=== PATIENT | male | born 1960 | race Caucasian/White ===

== ENCOUNTER 2023-11-23 13:28 | Inpatient (IN) | payer OTHER, MEDICAID ==
[~2023-11-23] VITALS: Ht 167.6 cm; Wt 83.9 kg
[2023-11-23 13:28] VITALS: BP 145/70; PULSE 67; RESP 18; TEMP 98.2; O2SAT 97
[2023-11-23] MEDS ORDERED: LORazepam 2 MG/ML VIAL IVP ONE (13:50)
[2023-11-23 14:02] LABS: BASOPHILS % (AUTO) 0.6 % (0.0-2.0); EOSINOPHILS # (AUTO) 0.2 K/uL (0-0.4); EOSINOPHILS % (AUTO) 3.6 % (0.0-4.0); HEMATOCRIT 36.1 % (36-52); LYMPHOCYTES # (AUTO) 1.4 K/uL (2.0-11.5); LYMPHOCYTES % (AUTO) 31.2 % (20.5-51.1); MEAN CORPUSCULAR HEMOGLOBIN 32 pg (27-31); MEAN CORPUSCULAR HGB CONC 33 g/dL (33-37); MEAN CORPUSCULAR VOLUME 95.4 fL (80-94); MONOCYTES # (AUTO) 0.4 K/uL (0.8-1.0); MONOCYTES % (AUTO) 8.8 % (1.7-9.3); NEUTROPHILS # (AUTO) 2.5 K/uL (1.8-7.7); NEUTROPHILS % (AUTO) 55.8 % (42.2-75.2); PLATELET COUNT (AUTO) 211 K/uL (140-450); RED BLOOD CELL COUNT(AUTO) 3.78 MIL/uL (4.20-6.10); RED CELL DISTRIBUTION WIDTH 15.1 % (11.6-13.7); WHITE BLOOD COUNT (AUTO) 4.5 K/uL (4.8-10.8)
[2023-11-23 14:20] LABS: ALANINE AMINOTRANSFERASE 22 U/L (12-78); ALBUMIN 3.4 g/dL (3.4-5.0); ALCOHOL, BLOOD < 3 mg/dL (<10); ALKALINE PHOSPHATASE 94 U/L (50-136); ANION GAP 12.1 (8-16); ASPARTATE AMINOTRANSFERASE 18 U/L (15-37); CARBON DIOXIDE 24.6 mmol/L (21-32); CHLORIDE 105 mmol/L (98-107); CREATININE 1.2 mg/dL (0.6-1.3); GFR ARICAN-AMERICAN 79 mL/min (>90); GFR NON ARICAN-AMERICAN 65 mL/min (>90); GLUCOSE 173 mg/dL (74-106); POTASSIUM 3.7 mmol/L (3.5-5.1); SODIUM SERUM 138 mmol/L (136-145); TOTAL BILIRUBIN 0.2 mg/dL (0.0-1.0); TOTAL PROTEIN, SERUM 6.7 g/dL (6.4-8.2); UREA NITROGEN, BLOOD 22 mg/dL (7-18)
[2023-11-23 15:58] LABS: APPEARANCE,URINE CLEAR (CLEAR); BILIRUBIN,URINE NEGATIVE (NEGATIVE); BLOOD, URINE NEGATIVE (NEGATIVE); COLOR,URINE YELLOW (YELLOW); LEUKOCYTE ESTERASE ,URINE NEGATIVE (NEGATIVE); NITRITE, URINE NEGATIVE (NEGATIVE); PROTEIN,URINE NEGATIVE (NEGATIVE); UGLUCOSE NEGATIVE (NEGATIVE); UROBILINOGEN,URINE 0.2 EU/dL (0.2 - 1)
[2023-11-23] MEDS: AMMONIA AROMATIC 1 INHL INH ONE (16:00)
[2023-11-23 16:06] LABS: AMPHETAMINE, URINE NEGATIVE ng/ml (NEG <=1000); BARBITURATE, URINE NEGATIVE ng/ml (NEG <=200); BENZODIAZEPINE, URINE NEGATIVE ng/mL (NEG <=200); COCAINE, URINE NEGATIVE ng/mL (NEG <=300)
[2023-11-23 16:07] LABS: CANNABINOID, URINE NEGATIVE ng/mL (NEG <=50); OPIATE, URINE NEGATIVE ng/mL (NEG <=2000); PHENCYCLIDINE SCREEN,URINE NEGATIVE ng/mL (NEG <=25)
[2023-11-23] MEDS ORDERED: levETIRAcetam 100 MG/ML VIAL IV ONE (17:12)
[2023-11-23] MEDS: levETIRAcetam 1,000 MG in NACL 0.9% 100 ML IV ONE (17:16)
[2023-11-23 17:33] VITALS: O2SAT 97
[2023-11-23 19:30] LABS: FLU A ANTIGEN negative (NEGATIVE); FLU B ANTIGEN NEGATIVE (NEGATIVE)
[2023-11-23 20:00] VITALS: PULSE 69; PULSE 75; RESP 18; O2SAT 99
[2023-11-23] MEDS: carvediloL 3.125 MG TAB PO ONE (20:37)
[2023-11-23] MEDS: ZOLPIDEM 5 MG TAB PO SCH (20:37)
[2023-11-23] MEDS: LOSARTAN 25 MG TAB PO ONE (20:38)
[2023-11-23] MEDS: NITROGLYCERIN 0.4 MG TAB SL ONE (20:46)
[2023-11-23] MEDS: LORazepam 2 MG/ML VIAL IM/IVP PRN (21:43)
[2023-11-23] MEDS: levETIRAcetam 500 MG TAB PO SCH (21:43)
[2023-11-24] VITALS: PULSE 55
[2023-11-24 04:00] VITALS: BP 109/49; PULSE 52; PULSE 54; RESP 21; TEMP 97.8; O2SAT 97
[2023-11-24 06:06] LABS: BASOPHILS % (AUTO) 0.6 % (0.0-2.0); EOSINOPHILS # (AUTO) 0.2 K/uL (0-0.4); EOSINOPHILS % (AUTO) 4.5 % (0.0-4.0); HEMATOCRIT 36.7 % (36-52); HEMOGLOBIN 12.3 g/dL (12.0-18.0); LYMPHOCYTES # (AUTO) 1.8 K/uL (2.0-11.5); LYMPHOCYTES % (AUTO) 36.9 % (20.5-51.1); MEAN CORPUSCULAR HEMOGLOBIN 32 pg (27-31); MEAN CORPUSCULAR HGB CONC 34 g/dL (33-37); MEAN CORPUSCULAR VOLUME 95.3 fL (80-94); MONOCYTES # (AUTO) 0.5 K/uL (0.8-1.0); MONOCYTES % (AUTO) 10.5 % (1.7-9.3); NEUTROPHILS # (AUTO) 2.3 K/uL (1.8-7.7); NEUTROPHILS % (AUTO) 47.5 % (42.2-75.2); PLATELET COUNT (AUTO) 227 K/uL (140-450); RED BLOOD CELL COUNT(AUTO) 3.85 MIL/uL (4.20-6.10); RED CELL DISTRIBUTION WIDTH 15.5 % (11.6-13.7); WHITE BLOOD COUNT (AUTO) 4.8 K/uL (4.8-10.8)
[2023-11-24 06:48] LABS: ALBUMIN 3.3 g/dL (3.4-5.0); ANION GAP 11.4 (8-16); CALCIUM 8.9 mg/dL (8.5-10.1); CARBON DIOXIDE 24.6 mmol/L (21-32); TOTAL BILIRUBIN 0.3 mg/dL (0.0-1.0); TOTAL PROTEIN, SERUM 7.1 g/dL (6.4-8.2)
[2023-11-24 06:59] LABS: CREATININE 1.1 mg/dL (0.6-1.3)
[2023-11-24 08:00] VITALS: BP 130/76; PULSE 50; RESP 18; TEMP 97.8; O2SAT 93
[2023-11-24] MEDS: PANTOPRAZOLE 40 MG INJ VIAL IVP SCH (09:24)
[2023-11-24] MEDS: levETIRAcetam 500 MG TAB PO SCH (09:24)
[2023-11-24 12:00] VITALS: BP 133/84; PULSE 64; RESP 18; TEMP 97.4; O2SAT 95
[2023-11-24 16:00] VITALS: BP 136/71; PULSE 56; RESP 18; TEMP 98; O2SAT 96
[2023-11-24 20:00] VITALS: BP 143/78; PULSE 66; PULSE 79; RESP 18; TEMP 97.2; O2SAT 94
[2023-11-25] VITALS: BP 136/74; PULSE 56; PULSE 57; RESP 18; TEMP 97.9; O2SAT 94
[2023-11-25] MEDS: MORPHINE SULFATE 2 MG/ML SYR IVP PRN (02:09)
[2023-11-25 04:00] VITALS: BP 118/75; PULSE 53; PULSE 58; RESP 18; TEMP 97.4; O2SAT 95
[2023-11-25 08:00] VITALS: BP 140/67; PULSE 54; RESP 20; TEMP 97.8; O2SAT 94
[2023-11-25] MEDS ORDERED: KEP500 PO (09:38)
[2023-11-25 12:00] VITALS: BP 124/64; PULSE 69; RESP 20; TEMP 98.4; O2SAT 95
[2023-11-25 15:06] VITALS: BP 124/64; PULSE 69; RESP 20; TEMP 98.4
[2023-11-25 16:00] VITALS: BP 126/74; PULSE 55; RESP 20; TEMP 97.9; O2SAT 95
== END 2023-11-25 18:30 | disposition home or self-care (01) | DRG 101 ==
LOC: MED 13:28 → MTU 16:23
PROVIDERS: ADMIT Student in an Organized Health Care Education/Training Program; ATTEND Student in an Organized Health Care Education/Training Program
PROC: 4A10X4Z Monitoring of Central Nervous Electrical Activity, External Approach (ICD-10-PCS; principal; 2023-11-25)
DX: G40.909 Epilepsy, unspecified, not intractable, without status epilepticus (principal); M79.18 Myalgia, other site; Z20.822 Contact with and (suspected) exposure to COVID-19; Z79.899 Other long term (current) drug therapy; Z88.0 Allergy status to penicillin
CPT/HCPCS: 36415; 70450; 71045; 80053; 80305; 81003; 84484; 85025; 87081; 93005; 95816; 96365; 99285; G0482; J1644; J1953; J2060; J2270; J2470; Q0092